=== PATIENT | male | born 1995 | race Caucasian/White ===

== ENCOUNTER 2023-10-02 20:08 | Emergency (ER) | payer OTHER ==
[~2023-10-02] VITALS: Ht 175.3 cm; Wt 106.6 kg
[2023-10-02] MEDS ORDERED: Clindamycin HCl 150 MG Cap PO ONE (20:55)
[2023-10-02] MEDS ORDERED: Cleocin HCl150 MG PO (20:56)
== END 2023-10-02 21:05 | disposition home or self-care (01) ==
LOC: ER 20:08
DX: K04.7 Periapical abscess without sinus (principal)
CPT/HCPCS: 64400; 99282-25; A9270